=== PATIENT | female | born 1985 | race African-American/Black ===

== ENCOUNTER 2016-02-26 05:08 | Emergency (ER) | payer SELFPAY ==
[~2016-02-26] VITALS: Ht 154.9 cm; Wt 51.5 kg
[2016-02-26] MEDS ORDERED: PREPARATION H O28 GM PR (05:37)
[2016-02-26 05:49] VITALS: BP 126/86
== END 2016-02-26 05:50 | disposition home or self-care (01) ==
LOC: EME 05:08
DX: K64.9 Unspecified hemorrhoids (principal)
CPT/HCPCS: 99281; 99283

== ENCOUNTER 2016-05-27 12:30 | Emergency (ER) | payer SELFPAY ==
[~2016-05-27] VITALS: Ht 154.9 cm; Wt 50.3 kg
[~2016-05-27 12:30] MED LIST: PREPARATION H O28 GM PR
[2016-05-27 15:04] VITALS: BP 108/62
== END 2016-05-27 15:07 | disposition home or self-care (01) ==
LOC: EME 12:30
DX: O20.0 Threatened abortion (principal); Z3A.00 Weeks of gestation of pregnancy not specified
CPT/HCPCS: 84702; 86900; 86901; 99281; 99284

== ENCOUNTER 2016-05-27 17:18 | Emergency (ER) | payer SELFPAY ==
[~2016-05-27] VITALS: Ht 154.9 cm; Wt 49.6 kg
[2016-05-27 19:21] VITALS: BP 121/70
== END 2016-05-27 19:22 | disposition home or self-care (01) ==
LOC: EME 17:18
DX: N93.9 Abnormal uterine and vaginal bleeding, unspecified (principal)
CPT/HCPCS: 76856; 99281; 99283

== ENCOUNTER 2016-07-05 23:15 | Emergency (ER) | payer SELFPAY ==
[~2016-07-05] VITALS: Ht 154.9 cm; Wt 51.5 kg
[2016-07-06 01:09] LABS: ADD MIUA? YES; BILIRUBIN NEGATIVE; BLOOD NEGATIVE; COLOR YELLOW ((YELLOW)); GLUCOSE (STRIP) NEGATIVE; KETONES NEGATIVE; LEUKOCYTES NEGATIVE; NITRITE NEGATIVE; PROTEIN (STRIP) NEGATIVE; SPECIFIC GRAVITY 1.018 (1.000-1.030); UROBILINOGEN 0.2 MG/DL (0.2-1.0)
[2016-07-06 01:11] LABS: BACTERIA RARE /HPF; EPITHELIAL CELLS RARE /HPF; MUCUS TRACE /LPF; RED BLOOD CELLS 0-5 /HPF (0-5); WHITE BLOOD CELLS 0-5 /HPF (0-5)
[2016-07-06 03:02] VITALS: BP 119/75
== END 2016-07-06 03:03 | disposition home or self-care (01) ==
LOC: EME 23:15 → RME 23:15
PROVIDERS: Physician Assistant
DX: O46.8X1 Other antepartum hemorrhage, first trimester (principal); Z3A.01 Less than 8 weeks gestation of pregnancy; O9A.211 Injury, poisoning and certain other consequences of external causes complicating pregnancy, first trimester; S39.011A Strain of muscle, fascia and tendon of abdomen, initial encounter; X50.9XXA Other and unspecified overexertion or strenuous movements or postures, initial encounter
CPT/HCPCS: 76801; 81003; 84702; 99281; 99284

== ENCOUNTER 2016-07-31 00:30 | Emergency (ER) | payer OTHER ==
[~2016-07-31] VITALS: Ht 154.9 cm; Wt 52.3 kg
[2016-07-31 01:09] LABS: ADD MIUA? YES; BILIRUBIN NEGATIVE; BLOOD NEGATIVE; COLOR YELLOW ((YELLOW)); GLUCOSE (STRIP) NEGATIVE; KETONES 5; LEUKOCYTES TRACE; NITRITE NEGATIVE; PROTEIN (STRIP) 30; SPECIFIC GRAVITY 1.029 (1.000-1.030); UROBILINOGEN 0.2 MG/DL (0.2-1.0)
[2016-07-31 01:16] LABS: BACTERIA RARE /HPF; EPITHELIAL CELLS 2+ /HPF; MUCUS 4+ /LPF; RED BLOOD CELLS 0-5 /HPF (0-5); UCUL ADDED? NO; WHITE BLOOD CELLS 0-5 /HPF (0-5)
[2016-07-31 01:19] LABS: HEMATOCRIT 40.2 % (36.0-46.0); MCH 26.8 PG (29.0-34.0); MCHC 33.6 G/DL (30.0-36.0); MCV 79.9 FL (83-99); PLATELET COUNT 330 K/uL (156-360); RBC DIS.WIDTH-CV 18.1 % (11.8-14.6); RBC DIS.WIDTH-SD 52.3 % (39-53); RED BLOOD COUNT 5.03 M/uL (3.80-5.20); WHITE BLOOD COUNT 8.9 K/uL (4.1-10.2)
[2016-07-31 01:33] LABS: CHLORIDE 99 mEq/L (99-109); POTASSIUM 3.7 mEq/L (3.7-5.4); SODIUM 130 mEq/L (136-147)
[2016-07-31 01:35] LABS: GLUCOSE 85 mg/dL (70-99)
[2016-07-31 01:36] LABS: ANION GAP 7 MEQ/L (2-14)
[2016-07-31 01:37] LABS: TOTAL BILIRUBIN 0.2 mg/dL (0.0-1.0)
[2016-07-31 01:38] LABS: ALKALINE PHOSPHATASE 47 IU/L (3-129)
[2016-07-31 01:39] LABS: GFR ESTIMATE (CALCULATED) > 59 mL/min/
[2016-07-31 01:40] LABS: UREA NITROGEN (BUN) 7 mg/dL (9-23)
[2016-07-31 02:04] LABS: QUANTITATIVE HCG > 225000.0 MIU/ML
[2016-07-31] MEDS ORDERED: DICLEGIS DR 101 EACH PO (02:26)
[2016-07-31 02:44] VITALS: BP 120/84
== END 2016-07-31 02:45 | disposition home or self-care (01) ==
LOC: EME 00:30
PROVIDERS: Physician Assistant
DX: O21.9 Vomiting of pregnancy, unspecified (principal); Z3A.09 9 weeks gestation of pregnancy; R19.7 Diarrhea, unspecified; E87.1 Hypo-osmolality and hyponatremia
CPT/HCPCS: 80053; 81003; 84702; 85027; 99281; 99284; J2405; J7030

== ENCOUNTER 2016-09-30 11:42 | Emergency (ER) | payer OTHER ==
[~2016-09-30] VITALS: Ht 154.9 cm; Wt 53.5 kg
[~2016-09-30 11:42] MED LIST changes: +DICLEGIS DR 101 EACH PO
[2016-09-30] MEDS ORDERED: FOLIC ACID1 MG PO (11:55)
[2016-09-30] MEDS ORDERED: KEPPRA500 MG PO (11:57)
[2016-09-30 12:31] VITALS: BP 104/73
== END 2016-09-30 13:28 | disposition home or self-care (01) ==
LOC: EME → EDBD 11:42 → EME 11:42
DX: O26.892 Other specified pregnancy related conditions, second trimester (principal); R56.9 Unspecified convulsions; Z3A.18 18 weeks gestation of pregnancy
CPT/HCPCS: 99281; 99284

== ENCOUNTER 2016-11-21 20:27 | Outpatient (CLI) | payer OTHER ==
[~2016-11-21] VITALS: Ht 157.5 cm; Wt 56.7 kg
[~2016-11-21 20:27] MED LIST changes: -KEPPRA1000 MG PO; -LEVETIRACETAM500 MG PO
[2016-11-22 02:40] LABS: AMPHETAMINES QUANT VALUE 0 NG/ML; BARBITUATES QUANT VALUE 0 NG/ML; BENZODIAZEPINES QUANT VALUE 0 NG/ML; BENZODIAZEPINES, URINE SCREEN Negative (200 ng/mL); MARIJUANA QUANT VALUE 0 NG/ML; OPIATES QUANTITATIVE VALUE 0 NG/ML; PHENCYCLIDINE QUANT VALUE 0 NG/ML
[2016-11-22 03:14] VITALS: BP 90/52
[2016-11-22 07:04] VITALS: BP 89/54
[2016-11-22] MEDS ORDERED: LEVETIRACETAM500 MG PO (19:13)
[2016-11-23] MEDS ORDERED: KEPPRA1000 MG PO (15:53)
== END 2016-11-22 19:40 | disposition home or self-care (01) ==
LOC: LDRP-OP → 2WEST 20:28 → LDRP-OP 04-03 13:31
PROVIDERS: Obstetrics & Gynecology
DX: O26.892 Other specified pregnancy related conditions, second trimester (principal); G40.909 Epilepsy, unspecified, not intractable, without status epilepticus; O99.012 Anemia complicating pregnancy, second trimester; Z3A.25 25 weeks gestation of pregnancy
CPT/HCPCS: 76818; 80177 90; 80306 90; 95819; G0378; J7120

== ENCOUNTER → 2016-11-21 | Outpatient (CLI) | payer OTHER ==
[~2016-11-21] VITALS: Ht 154.9 cm; Wt 53.9 kg
[~2016-11-21] MED LIST changes: +FOLIC ACID1 MG PO; +KEPPRA1000 MG PO; +KEPPRA500 MG PO; +LEVETIRACETAM500 MG PO
[2016-11-21 17:42] LABS: HEMATOCRIT 34.6 % (36.0-46.0); MCH 28.8 PG (29.0-34.0); MCHC 33.5 G/DL (30.0-36.0); MCV 85.9 FL (83-99); MEAN PLAT.VOLUME 10.1 uM^3 (9.5-12.4); PLATELET COUNT 243 K/uL (156-360); RBC DIS.WIDTH-CV 16.7 % (11.8-14.6); RBC DIS.WIDTH-SD 51.6 % (39-53); RED BLOOD COUNT 4.03 M/uL (3.80-5.20); WHITE BLOOD COUNT 8.9 K/uL (4.1-10.2)
[2016-11-21 17:53] LABS: CHLORIDE 107 mEq/L (99-109); POTASSIUM 3.5 mEq/L (3.7-5.4); SODIUM 137 mEq/L (136-147)
[2016-11-21 17:54] LABS: MAGNESIUM 1.7 mg/dL (1.3-2.7)
[2016-11-21 17:55] LABS: GLUCOSE 83 mg/dL (70-99)
[2016-11-21 17:57] LABS: ANION GAP 10 MEQ/L (2-14)
[2016-11-21 17:59] LABS: GFR ESTIMATE (CALCULATED) > 59 mL/min/
[2016-11-21 18:00] LABS: UREA NITROGEN (BUN) 6 mg/dL (9-23)
[2016-11-21 19:55] LABS: ADD MIUA? YES; BILIRUBIN NEGATIVE; BLOOD NEGATIVE; COLOR YELLOW ((YELLOW)); GLUCOSE (STRIP) NEGATIVE; KETONES NEGATIVE; LEUKOCYTES NEGATIVE; NITRITE NEGATIVE; PROTEIN (STRIP) NEGATIVE; SPECIFIC GRAVITY 1.011 (1.000-1.030); UROBILINOGEN 0.2 MG/DL (0.2-1.0)
[2016-11-21 19:59] LABS: BACTERIA RARE /HPF; EPITHELIAL CELLS 1+ /HPF; MUCUS TRACE /LPF; RED BLOOD CELLS 0-5 /HPF (0-5); UCUL ADDED? NO; WHITE BLOOD CELLS 0-5 /HPF (0-5)
[2016-11-21 20:31] VITALS: BP 99/66
[2016-11-21 23:05] VITALS: BP 101/63
[2016-11-22 11:30] VITALS: BP 102/65
[2016-11-22 15:29] VITALS: BP 96/63
== END | disposition home or self-care (01) ==
LOC: LDRP-OP 17:19 → EME 17:19 → EDSTATUS 20:25
PROVIDERS: Emergency Medicine
DX: O99.352 Diseases of the nervous system complicating pregnancy, second trimester (principal); G40.909 Epilepsy, unspecified, not intractable, without status epilepticus; O26.892 Other specified pregnancy related conditions, second trimester; R10.819 Abdominal tenderness, unspecified site; O22.42 Hemorrhoids in pregnancy, second trimester; Z3A.25 25 weeks gestation of pregnancy; Z86.19 Personal history of other infectious and parasitic diseases
CPT/HCPCS: 80048; 81003; 83735; 85027; 99281; 99285; J2060; J7030

== ENCOUNTER 2016-11-23 14:42 | Outpatient (CLI) | payer OTHER ==
[~2016-11-23] VITALS: Ht 154.9 cm; Wt 56.8 kg
[~2016-11-23 14:42] MED LIST changes: +LEVETIRACETAM500 MG PO
[2016-11-23 15:41] LABS: ADD MIUA? YES; BILIRUBIN NEGATIVE; BLOOD NEGATIVE; COLOR STRAW ((YELLOW)); GLUCOSE (STRIP) NEGATIVE; KETONES NEGATIVE; LEUKOCYTES NEGATIVE; NITRITE NEGATIVE; PROTEIN (STRIP) NEGATIVE; SPECIFIC GRAVITY 1.006 (1.000-1.030); UROBILINOGEN 0.2 MG/DL (0.2-1.0)
[2016-11-23 15:44] LABS: HEMATOCRIT 34.5 % (36.0-46.0); MCH 28.5 PG (29.0-34.0); MCHC 32.8 G/DL (30.0-36.0); MCV 87.1 FL (83-99); MEAN PLAT.VOLUME 10.4 uM^3 (9.5-12.4); PLATELET COUNT 253 K/uL (156-360); RBC DIS.WIDTH-SD 53.7 % (39-53); RED BLOOD COUNT 3.96 M/uL (3.80-5.20); WHITE BLOOD COUNT 7.4 K/uL (4.1-10.2)
[2016-11-23 15:52] LABS: BACTERIA RARE /HPF; EPITHELIAL CELLS 2+ /HPF; MUCUS 1+ /LPF; RED BLOOD CELLS 0-5 /HPF (0-5); WHITE BLOOD CELLS 0-5 /HPF (0-5)
[2016-11-23 15:53] LABS: CHLORIDE 105 mEq/L (99-109); SODIUM 137 mEq/L (136-147)
[2016-11-23] MEDS ORDERED: KEPPRA1000 MG PO (15:53)
[2016-11-23 15:55] LABS: GLUCOSE 79 mg/dL (70-99)
[2016-11-23 15:57] LABS: ANION GAP 11 MEQ/L (2-14); TOTAL BILIRUBIN 0.2 mg/dL (0.0-1.0)
[2016-11-23 15:59] LABS: ALKALINE PHOSPHATASE 86 IU/L (3-129); GFR ESTIMATE (CALCULATED) > 59 mL/min/
[2016-11-23 16:00] LABS: UREA NITROGEN (BUN) 7 mg/dL (9-23)
[2016-11-23 16:01] LABS: DIRECT BILIRUBIN 0.1 mg/dL (0.0-0.3)
[2016-11-23 16:02] LABS: LIPASE 42 U/L (1.0-51.0)
[2016-11-23 16:05] LABS: TROP-I INTERPRETATION NEGATIVE; TROPONIN-I < 0.01 ng/mL (0.0-0.30)
[2016-11-23 18:59] VITALS: BP 108/56
== END 2016-11-23 18:59 | disposition home or self-care (01) ==
LOC: EME 14:42 → LDRP-OP 14:42 → EME 18:59 → EDSTATUS 19:00
PROVIDERS: Emergency Medicine
DX: O26.892 Other specified pregnancy related conditions, second trimester (principal); R51 Headache; Z3A.25 25 weeks gestation of pregnancy; O99.352 Diseases of the nervous system complicating pregnancy, second trimester; G40.909 Epilepsy, unspecified, not intractable, without status epilepticus
CPT/HCPCS: 80048; 80076; 81003; 83690; 84484; 85027; 87086; 99281; 99283

== ENCOUNTER 2016-11-23 19:01 | Outpatient (CLI) | payer OTHER ==
[2016-11-23 19:00] VITALS: BP 96/54
[~2016-11-23 19:01] MED LIST changes: +KEPPRA1000 MG PO
== END 2016-11-23 20:55 | disposition home or self-care (01) ==
LOC: LDRP-OP 19:01 → 2WEST 19:02 → LDRP-OP 04-03 14:59
DX: O26.892 Other specified pregnancy related conditions, second trimester (principal); R10.9 Unspecified abdominal pain; R51 Headache; G40.909 Epilepsy, unspecified, not intractable, without status epilepticus; Z3A.25 25 weeks gestation of pregnancy
CPT/HCPCS: 59025; G0378

== ENCOUNTER 2016-12-09 12:29 | Outpatient (CLI) | payer OTHER ==
[2016-12-09 12:53] VITALS: BP 106/68
[2016-12-09 14:18] LABS: ADD MIUA? NO; BILIRUBIN NEGATIVE; BLOOD NEGATIVE; COLOR YELLOW ((YELLOW)); GLUCOSE (STRIP) NEGATIVE; KETONES NEGATIVE; LEUKOCYTES NEGATIVE; NITRITE NEGATIVE; PROTEIN (STRIP) NEGATIVE; UROBILINOGEN 0.2 MG/DL (0.2-1.0)
[2016-12-09 14:19] LABS: EOSINOPHIL (%) 0.8 % (0-5); EOSINOPHIL COUNT 0.1 K/uL (0-0.3); HEMATOCRIT 35.3 % (36.0-46.0); IMMATURE GRANULOCYTE (%) 0.8 % (0.0-0.7); IMMATURE GRANULOCYTE COUNT 0.1 K/uL; INSTRUMENT ABS NEUTROPHIL CT 7.9 K/uL; LYMPHOCYTE COUNT 1.3 K/uL (1.0-2.8); MCH 27.7 PG (29.0-34.0); MCHC 32.3 G/DL (30.0-36.0); MCV 85.7 FL (83-99); MEAN PLAT.VOLUME 10.2 uM^3 (9.5-12.4); MONOCYTE (%) 7.8 % (3-12); MONOCYTE COUNT 0.8 K/uL (0-0.8); NEUTROPHIL (%) 77.1 % (45-76); NEUTROPHIL COUNT 7.9 K/uL (1.8-6.4); PLATELET COUNT 263 K/uL (156-360); RBC DIS.WIDTH-CV 15.8 % (11.8-14.6); RBC DIS.WIDTH-SD 49.1 % (39-53); RED BLOOD COUNT 4.12 M/uL (3.80-5.20); WHITE BLOOD COUNT 10.2 K/uL (4.1-10.2)
[2016-12-09 14:30] VITALS: BP 90/51
[2016-12-09] MEDS ORDERED: FLAGYL500 MG PO (14:33)
[2016-12-10 10:56] LABS: TREPONEMA ANTIBODY NEGATIVE (NEGATIVE)
== END 2016-12-09 15:30 | disposition home or self-care (01) ==
LOC: LDRP-OP 12:29 → 2WEST 12:30 → LDRP-OP 04-03 01:11
PROVIDERS: Advanced Practice Midwife
DX: O99.89 Other specified diseases and conditions complicating pregnancy, childbirth and the puerperium (principal); M54.5 Low back pain; R10.30 Lower abdominal pain, unspecified; Z3A.29 29 weeks gestation of pregnancy
CPT/HCPCS: 59025; 81003; 85025; 86780; 87086; G0378

== ENCOUNTER 2017-01-19 17:46 | Outpatient (CLI) | payer OTHER ==
[2017-01-19] VITALS (16 sets, daily range): BP systolic 81–116; BP diastolic 43–73
[~2017-01-19] VITALS: Ht 157.5 cm; Wt 61.2 kg
[~2017-01-19 17:46] MED LIST changes: +FLAGYL500 MG PO
[2017-01-19] MEDS ORDERED: KEPPRA750 MG PO (19:37)
[2017-01-19] MEDS ORDERED: PRENATAL TABLE1 EAC3 PO (19:38)
[2017-01-19] MEDS ORDERED: FOLIC ACID1 MG PO (19:40)
[2017-01-19 19:49] LABS: ADD MIUA? YES; BILIRUBIN NEGATIVE; BLOOD SMALL; COLOR YELLOW ((YELLOW)); GLUCOSE (STRIP) NEGATIVE; KETONES NEGATIVE; LEUKOCYTES MODERATE; NITRITE NEGATIVE; PROTEIN (STRIP) NEGATIVE; SPECIFIC GRAVITY 1.003 (1.000-1.030); UROBILINOGEN 0.2 MG/DL (0.2-1.0)
[2017-01-19 19:59] LABS: BACTERIA 3+ /HPF; EPITHELIAL CELLS 3+ /HPF; MUCUS 2+ /LPF; RED BLOOD CELLS 0-5 /HPF (0-5); UCUL ADDED? YES
[2017-01-19 20:13] LABS: AMPHETAMINE NEGATIVE (500 ng/mL); BARBITURATES NEGATIVE (200 ng/mL); BENZODIAZEPINES NEGATIVE (150 ng/mL); COCAINE NEGATIVE (150 ng/mL); INTERNAL CONTROLS VALID? YES; METHADONE NEGATIVE (200 ng/mL); METHAMPHETAMINE NEGATIVE (500 ng/mL); OPIATES (MORPHINE) NEGATIVE (100 ng/mL); OXYCODONE NEGATIVE (100 ng/mL); PHENCYCLIDINE NEGATIVE (25 ng/mL); PROPOXYPHENE NEGATIVE (300 ng/mL); THC CANNABINOIDS NEGATIVE (50 ng/mL); TRICYCLIC ANTIDEPRESSANTS NEGATIVE (300 ng/mL)
[2017-01-19] MEDS ORDERED: PROGESTERONE50 MG/ML IM (20:16)
[2017-01-19 20:55] LABS: CANDIDA DNA PROBE POSITIVE; GARDNERELLA DNA PROBE POSITIVE; INTERNAL CONTROL VALID? YES
[2017-01-19] MEDS ORDERED: MAKENA250 MG/1 M IM (23:42)
[2017-01-20 01:17] VITALS: BP 90/51
[2017-01-20 03:34] VITALS: BP 99/55
[2017-01-20 07:22] VITALS: BP 103/56
[2017-01-20 08:58] LABS: UR CREATININE CONCENTRATION 55.3 MG/DL
[2017-01-20 08:59] LABS: HEMATOCRIT 32.4 % (36.0-46.0); MCH 27.8 PG (29.0-34.0); MCHC 32.7 G/DL (30.0-36.0); MEAN PLAT.VOLUME 10.3 uM^3 (9.5-12.4); PLATELET COUNT 220 K/uL (156-360); RBC DIS.WIDTH-CV 17.8 % (11.8-14.6); RBC DIS.WIDTH-SD 55.4 % (39-53); RED BLOOD COUNT 3.81 M/uL (3.80-5.20); WHITE BLOOD COUNT 7.6 K/uL (4.1-10.2)
[2017-01-20 09:07] LABS: ALKALINE PHOSPHATASE 187 IU/L (3-129); ANION GAP 7 MEQ/L (2-14); CHLORIDE 106 MEQ/L (99-109); GFR ESTIMATE (CALCULATED) > 59 mL/min/; GLUCOSE 102 mg/dL (70-99); POTASSIUM 3.7 MEQ/L (3.7-5.4); SAMPLE HEMOLYSIS CHECK 0; SAMPLE ICTERIC CHECK 0; SAMPLE LIPEMIA CHECK 0; SODIUM 137 MEQ/L (136-147); TOTAL BILIRUBIN 0.3 MG/DL (0.0-1.0); UREA NITROGEN (BUN) 3 mg/dL (9-23)
[2017-01-20] MEDS ORDERED: METRONIDAZOLE500 MG PO (09:32)
[2017-01-20 09:45] LABS: ADD MIUA? YES; BILIRUBIN NEGATIVE; BLOOD NEGATIVE; COLOR YELLOW ((YELLOW)); GLUCOSE (STRIP) NEGATIVE; KETONES NEGATIVE; LEUKOCYTES SMALL; NITRITE NEGATIVE; PROTEIN (STRIP) NEGATIVE; SPECIFIC GRAVITY 1.008 (1.000-1.030); UROBILINOGEN 0.2 MG/DL (0.2-1.0)
[2017-01-20 09:47] LABS: BACTERIA RARE /HPF; EPITHELIAL CELLS 1+ /HPF; MUCUS 1+ /LPF; RED BLOOD CELLS 0-5 /HPF (0-5); WHITE BLOOD CELLS 0-5 /HPF (0-5)
[2017-01-20 11:11] VITALS: BP 105/63
[2017-01-20 12:40] LABS: UR CREATININE CONCENTRATION 25.8 MG/DL
== END 2017-01-20 15:56 | disposition home or self-care (01) ==
LOC: LDRP-OP 17:46 → 2WEST 17:47 → LDRP-OP 04-03 16:40
PROVIDERS: Advanced Practice Midwife; Obstetrics & Gynecology
DX: O47.03 False labor before 37 completed weeks of gestation, third trimester (principal); O99.353 Diseases of the nervous system complicating pregnancy, third trimester; G40.909 Epilepsy, unspecified, not intractable, without status epilepticus; O99.343 Other mental disorders complicating pregnancy, third trimester; F41.9 Anxiety disorder, unspecified; F32.9 Major depressive disorder, single episode, unspecified; O09.213 Supervision of pregnancy with history of pre-term labor, third trimester; Z3A.33 33 weeks gestation of pregnancy
CPT/HCPCS: 59025; 80053; 81003; 82570; 82731; 84156; 85025; 85027; 87086; 87480; 87510; 87660; G0378; J3105; J7120

== ENCOUNTER 2017-02-09 01:16 | Outpatient (CLI) | payer OTHER ==
[~2017-02-09] VITALS: Ht 157.5 cm; Wt 63.2 kg
[~2017-02-09 01:16] MED LIST changes: +KEPPRA750 MG PO; +MAKENA250 MG/1 M IM; +METRONIDAZOLE500 MG PO; +PRENATAL TABLE1 EAC3 PO; +PROGESTERONE50 MG/ML IM
[2017-02-09 01:32] VITALS: BP 110/67
== END 2017-02-09 03:30 | disposition home or self-care (01) ==
LOC: LDRP-OP 01:16 → 2WEST 01:17 → LDRP-OP 04-03 16:36
DX: O47.03 False labor before 37 completed weeks of gestation, third trimester (principal); O99.353 Diseases of the nervous system complicating pregnancy, third trimester; G40.909 Epilepsy, unspecified, not intractable, without status epilepticus; Z3A.36 36 weeks gestation of pregnancy; O09.213 Supervision of pregnancy with history of pre-term labor, third trimester
CPT/HCPCS: 59025; G0378

== ENCOUNTER 2017-02-18 01:52 | Inpatient (IN) | payer OTHER ==
[~2017-02-18] VITALS: Ht 157.5 cm; Wt 64.9 kg
[2017-02-18] VITALS (15 sets, daily range): BP systolic 99–130; BP diastolic 56–78
[2017-02-18] MEDS ORDERED: KEPPRA750 MG PO (02:16)
[2017-02-18 04:43] LABS: BASOPHIL (%) 0.2 % (0-1); EOSINOPHIL (%) 0.5 % (0-5); HEMATOCRIT 37.4 % (36.0-46.0); HEMOGLOBIN 12.4 G/DL (11.9-15.5); IMMATURE GRANULOCYTE (%) 0.8 % (0.0-0.7); LYMPHOCYTE (%) 16.1 % (15-42); LYMPHOCYTE COUNT 1.4 K/uL (1.0-2.8); MCHC 33.2 G/DL (30.0-36.0); MCV 81.5 FL (83-99); MONOCYTE (%) 9.1 % (3-12); MONOCYTE COUNT 0.8 K/uL (0-0.8); NEUTROPHIL (%) 73.3 % (45-76); NEUTROPHIL COUNT 6.4 K/uL (1.8-6.4); PLATELET COUNT 208 K/uL (156-360); RBC DIS.WIDTH-CV 18.1 % (11.8-14.6); RBC DIS.WIDTH-SD 53.2 % (39-53); WHITE BLOOD COUNT 8.7 K/uL (4.1-10.2)
[2017-02-18 04:44] LABS: RED BLOOD COUNT 4.59 M/uL (3.80-5.20)
[2017-02-19 07:23] VITALS: BP 113/59
[2017-02-19 07:48] LABS: BASOPHIL (%) 0.3 % (0-1); EOSINOPHIL COUNT 0.2 K/uL (0-0.3); IMMATURE GRANULOCYTE (%) 0.6 % (0.0-0.7); LYMPHOCYTE (%) 19.7 % (15-42); LYMPHOCYTE COUNT 1.9 K/uL (1.0-2.8); MCH 26.7 PG (29.0-34.0); MCHC 32.4 G/DL (30.0-36.0); MCV 82.4 FL (83-99); MONOCYTE (%) 7.9 % (3-12); MONOCYTE COUNT 0.8 K/uL (0-0.8); NEUTROPHIL (%) 69.5 % (45-76); NEUTROPHIL COUNT 6.7 K/uL (1.8-6.4); PLATELET COUNT 169 K/uL (156-360); RBC DIS.WIDTH-CV 18.2 % (11.8-14.6); RBC DIS.WIDTH-SD 54.8 % (39-53); WHITE BLOOD COUNT 9.7 K/uL (4.1-10.2)
[2017-02-19 07:53] LABS: HEMOGLOBIN 9.4 G/DL (11.9-15.5); RED BLOOD COUNT 3.52 M/uL (3.80-5.20)
[2017-02-19 14:35] VITALS: BP 99/64
[2017-02-19 23:10] VITALS: BP 114/68
[2017-02-20 07:31] VITALS: BP 116/62
[2017-02-20] MEDS ORDERED: IBUPROFEN800 MG PO (10:41)
[2017-02-20] MEDS ORDERED: CHROMAGEN,1 CAPSULE PO (10:44)
[2017-02-21] MEDS ORDERED: PEPCID20 MG PO (02:35)
== END 2017-02-20 14:40 | disposition home or self-care (01) | DRG 775 ==
LOC: LDRP-OP 01:52 → 2WEST 01:53 → LDRP-OP 04-03 03:41
PROVIDERS: Advanced Practice Midwife
DX: O99.02 Anemia complicating childbirth (principal); D62 Acute posthemorrhagic anemia; O99.354 Diseases of the nervous system complicating childbirth; G40.909 Epilepsy, unspecified, not intractable, without status epilepticus; O99.344 Other mental disorders complicating childbirth; F41.9 Anxiety disorder, unspecified; F32.9 Major depressive disorder, single episode, unspecified; Z3A.38 38 weeks gestation of pregnancy; Z37.0 Single live birth
CPT/HCPCS: 85025; J0595; J7120

== ENCOUNTER 2017-02-20 22:57 | Emergency (ER) | payer OTHER ==
[~2017-02-20] VITALS: Ht 154.9 cm; Wt 68.0 kg
[~2017-02-20 22:57] MED LIST changes: +CHROMAGEN,1 CAPSULE PO; +IBUPROFEN800 MG PO
[2017-02-20 23:26] LABS: HEMATOCRIT 37.7 % (36.0-46.0); MCH 27.3 PG (29.0-34.0); MCHC 33.4 G/DL (30.0-36.0); MCV 81.6 FL (83-99); PLATELET COUNT 213 K/uL (156-360); RBC DIS.WIDTH-CV 18.8 % (11.8-14.6); RBC DIS.WIDTH-SD 54.7 % (39-53); WHITE BLOOD COUNT 10.9 K/uL (4.1-10.2)
[2017-02-20 23:27] LABS: HEMOGLOBIN 12.6 G/DL (11.9-15.5); RED BLOOD COUNT 4.62 M/uL (3.80-5.20)
[2017-02-20 23:29] LABS: CHLORIDE 106 mEq/L (99-109)
[2017-02-20 23:30] LABS: SODIUM 139 mEq/L (136-147)
[2017-02-20 23:31] LABS: GLUCOSE 78 mg/dL (70-99)
[2017-02-20 23:35] LABS: CREATININE 0.7 mg/dL (0.6-1.3); GFR ESTIMATE (CALCULATED) > 59 mL/min/
[2017-02-20 23:36] LABS: UREA NITROGEN (BUN) 5 mg/dL (9-23)
[2017-02-20 23:40] LABS: TROP-I INTERPRETATION NEGATIVE; TROPONIN-I < 0.01 ng/mL (0.0-0.30)
[2017-02-21 00:21] LABS: ALBUMIN 2.9 g/dL (3.2-4.8)
[2017-02-21 00:24] LABS: TOTAL PROTEIN 6.6 g/dL (6.4-8.3)
[2017-02-21 00:26] LABS: TOTAL BILIRUBIN 0.2 mg/dL (0.0-1.0)
[2017-02-21 00:27] LABS: ALKALINE PHOSPHATASE 230 IU/L (3-129)
[2017-02-21 00:29] LABS: AST (GOT) 68 IU/L (2-34)
[2017-02-21 00:30] LABS: ALT (GPT) 42 IU/L (3-49); DIRECT BILIRUBIN 0.1 mg/dL (0.0-0.3)
[2017-02-21 00:31] LABS: LIPASE 16 U/L (1.0-51.0)
[2017-02-21 00:50] LABS: APPEARANCE CLEAR ((CLEAR)); BILIRUBIN NEGATIVE; BLOOD LARGE; COLOR STRAW ((YELLOW)); GLUCOSE (STRIP) NEGATIVE; KETONES NEGATIVE; LEUKOCYTES SMALL; NITRITE NEGATIVE; PROTEIN (STRIP) NEGATIVE; SPECIFIC GRAVITY 1.005 (1.000-1.030); UROBILINOGEN 0.2 MG/DL (0.2-1.0)
[2017-02-21 00:54] LABS: BACTERIA NONE SEEN /HPF; EPITHELIAL CELLS 1+ /HPF; MUCUS TRACE /LPF; UCUL ADDED? YES
[2017-02-21] MEDS ORDERED: PEPCID20 MG PO (02:35)
[2017-02-21 03:00] VITALS: BP 113/75
== END 2017-02-21 03:01 | disposition home or self-care (01) ==
LOC: EME 22:57
PROVIDERS: Emergency Medicine
DX: O90.89 Other complications of the puerperium, not elsewhere classified (principal); R07.89 Other chest pain; K29.00 Acute gastritis without bleeding; M79.605 Pain in left leg; R06.00 Dyspnea, unspecified; R79.1 Abnormal coagulation profile
CPT/HCPCS: 71020; 71275; 80048; 80076; 81003; 83690; 84484; 85027; 85379; 87086; 93005; 93971; 99281; 99285; J2270; S0028

== ENCOUNTER 2017-04-11 17:26 | Emergency (ER) | payer OTHER ==
[~2017-04-11] VITALS: Ht 154.9 cm; Wt 53.6 kg
[~2017-04-11 17:26] MED LIST changes: +PEPCID20 MG PO
[2017-04-11 19:08] LABS: HEMATOCRIT 42.1 % (36.0-46.0); HEMOGLOBIN 14.4 G/DL (11.9-15.5); MCH 27.3 PG (29.0-34.0); MCHC 34.2 G/DL (30.0-36.0); MCV 79.7 FL (83-99); PLATELET COUNT 256 K/uL (156-360); RBC DIS.WIDTH-CV 18.4 % (11.8-14.6); RED BLOOD COUNT 5.28 M/uL (3.80-5.20); WHITE BLOOD COUNT 10.9 K/uL (4.1-10.2)
[2017-04-11 19:20] LABS: ALBUMIN 4.3 g/dL (3.2-4.8); CHLORIDE 102 mEq/L (99-109); POTASSIUM 3.8 mEq/L (3.7-5.4); SODIUM 138 mEq/L (136-147)
[2017-04-11 19:22] LABS: GLUCOSE 91 mg/dL (70-99); TOTAL PROTEIN 7.8 g/dL (6.4-8.3)
[2017-04-11 19:24] LABS: TOTAL BILIRUBIN 0.5 mg/dL (0.0-1.0)
[2017-04-11 19:26] LABS: ALKALINE PHOSPHATASE 113 IU/L (3-129); CREATININE 0.9 mg/dL (0.6-1.3); GFR ESTIMATE (CALCULATED) > 59 mL/min/
[2017-04-11 19:27] LABS: UREA NITROGEN (BUN) 8 mg/dL (9-23)
[2017-04-11 19:28] LABS: AST (GOT) 15 IU/L (2-34)
[2017-04-11 19:29] LABS: ALT (GPT) 11 IU/L (3-49)
[2017-04-11] MEDS ORDERED: KEFLEX500 MG PO (19:33)
[2017-04-11] MEDS ORDERED: MOTRIN600 MG PO (19:34)
[2017-04-11 19:41] VITALS: BP 116/78
== END 2017-04-11 19:43 | disposition home or self-care (01) ==
LOC: EME 17:26 → RME 17:26
PROVIDERS: Physician Assistant
DX: N61.0 Mastitis without abscess (principal); R56.9 Unspecified convulsions
CPT/HCPCS: 80053; 83605; 85027; 87040; 99281; 99284; J0696